=== PATIENT | female | born 1975 | race Caucasian/White ===

== ENCOUNTER → 2020-10-06 | Outpatient (CLI) | payer BC ==
[2020-10-06 12:28] LABS: HEMOGLOBIN 12.5 gm/dl (12.3-15.3); RED BLOOD COUNT 4.34 M/UL (4.00-5.10); WHITE BLOOD COUNT 3.8 K/UL (4.5-11.0)
[2020-10-06 12:54] LABS: BUN/CREATININE RATIO 10 (0-10)
== END ==
LOC: LAB 11:47
PROVIDERS: Internal Medicine Sports Medicine
DX: M05.79 Rheumatoid arthritis with rheumatoid factor of multiple sites without organ or systems involvement (principal); I73.00 Raynaud's syndrome without gangrene; M79.10 Myalgia, unspecified site; M15.0 Primary generalized (osteo)arthritis; Z68.28 Body mass index [BMI] 28.0-28.9, adult; Z79.899 Other long term (current) drug therapy
CPT/HCPCS: 36415; 80053; 85027

== ENCOUNTER 2021-07-30 13:56 | Emergency (ER) | payer BC ==
[2021-07-30 14:37] LABS: HEMOGLOBIN 14.1 gm/dl (12.3-15.3); RED BLOOD COUNT 4.79 M/UL (4.00-5.10); WHITE BLOOD COUNT 6.3 K/UL (4.5-11.0)
[2021-07-30 15:08] LABS: BUN/CREATININE RATIO 11 (0-10)
[2021-07-30] MEDS ORDERED: VOLTAREN EC 7575 MG PO (17:05)
== END 2021-07-30 17:12 | disposition home or self-care (01) ==
LOC: ER1 13:56
PROVIDERS: Physician Assistant
DX: R06.02 Shortness of breath (principal); R60.0 Localized edema; Z87.39 Personal history of other diseases of the musculoskeletal system and connective tissue; Z20.822 Contact with and (suspected) exposure to COVID-19
CPT/HCPCS: 0240U; 71045; 80053; 81001; 82550; 82553; 83605; 83880; 84484; 85025; 85379; 85652; 86140; 93005; 99285

== ENCOUNTER → 2021-09-10 | Outpatient (CLI) | payer BC ==
[~2021-09-10] MED LIST: VOLTAREN EC 7575 MG PO
== END ==
LOC: EMI 08:30
DX: G44.52 New daily persistent headache (NDPH) (principal); M48.02 Spinal stenosis, cervical region
CPT/HCPCS: 70551; 72141